=== PATIENT | male | born 1985 | race Caucasian/White ===

== ENCOUNTER 2018-08-28 20:13 | Inpatient (IN) ==
--- NOTE | 2018-08-28 20:57 | ED ---
HPI General Stated Complaint: Psych eval / transfer [facility] Time Seen by Provider: 08/28/18 20:54 Source: patient Mode of arrival: ambulatory Limitations: no limitations History of Present Illness HPI Narrative: 33-year-old white male presents emergency department as a transfer from [facility] [place] under [place] act. Patient was medically cleared and transferred here to [place] for psychiatric evaluation. Patient states that he has multiple personality disorder, schizophrenia, bipolar and has been traveling from [place]. He states that he has been in the state now for last month or so. He states that he has been having visual auditory hallucinations. He has been scratching himself. He is out of his psychotropic medicines. He denies any suicidal or homicidal ideation. He states that he would like to get back on his medicine so he can go back to traveling. Patient has requested something to eat. He denies any medical complaints otherwise. No fever chills. No chest pain or shortness of breath. No nausea vomiting. No abdominal pain or urine symptoms. He denies any drugs. He does drink alcohol on occasion. Patient reports that he also suffers from chronic back and hip pain. Review of Systems ROS: all other systems reviewed are negative Exam Narrative Exam Narrative: GENERAL: Well-nourished, well-developed patient. SKIN: Warm and dry. Patient has superficial scratches to both dorsal forearms and face. HEAD: Normocephalic and atraumatic. EYES: No scleral icterus. No injection or drainage. ENT: No nasal drainage noted. Mucous membranes pink. Airway patent. NECK: Supple, trachea midline. Moves head freely without obvious discomfort. CARDIOVASCULAR: Regular rate and rhythm without murmurs, gallops, or rubs. RESPIRATORY: Breath sounds equal bilaterally. No accessory muscle use. GASTROINTESTINAL: Abdomen soft, non-tender, nondistended. EXTREMITIES: No cyanosis or edema. BACK: Nontender without obvious deformity. No CVA tenderness. NEURO: Patient is alert and oriented. no sensorimotor deficits. Nonfocal. Normal speech. PSYCH: No delusions. No auditory or visual hallucinations. Medical Decision Making MDM Narrative Medical decision making narrative: Patient has been medically cleared from [facility]. I have reviewed the laboratory testing. I see no need for any additional testing at this time. Patient is considered medically stable to be evaluated by psychiatry. Medical Screen Exam Complete: Yes Emergency Medical Condition: Yes Differential Diagnosis Differential Diagnosis: MDM: High Differential diagnoses: Schizophrenia, schizoaffective disorder, bipolar, anxiety, depression, adjustment reaction, mood disorder NOS, ODD, depressive disorder NOS, psychosis NOS, substance induced mood disorder, DMDD, Asperger syndrome, infection,electrolyte abnormality, malingering. Mental health screening discussed with the patient. Psychiatric screen ordered. Discharge Plan Discharge Disposition Patient Disposition: 30 Still Patient Discharge Condition Condition: Stable Physicians Team ED Provider: Leodan Langston ED Midlevel Provider: Nagi Kerr Status ED Status: With Doctor
[2018-08-29] MEDS ORDERED: Aluminum/Magnesium/Simethacone Susp 30 ML UDC PO PRN (09:27)
[2018-08-29] MEDS ORDERED: Bisacodyl 10 MG Supp RECTAL PRN (09:27)
--- NOTE | 2018-08-29 15:10 | P.HPPSY ---
Provisional Diagnosis Admission Date: August 29, 2018 09:29 Frank[place] I.: Schizophrenia vs schizoaffective disorder Frank[place] II.: Deferred Frank[place] III.: No significant medical history Competence Certification of Person's Competence To Provide Express and Informed Consent I have personally examined Sal Morales, a person being served at [facility] on, August 29, 2018 1455. Express and informed consent means consent voluntarily given in writing, by a competent person, after sufficient explanation and disclosure of the subject matter involved to enable the person to make a knowing and willful decision without any element of force, fraud, deceit, duress, or other form of constraint or coercion. This person is 18 years of age or older, is not now known to be incompetent to consent to treatment with a guardian advocate, and does not have a health care surrogate or proxy currently making medical treatment decisions. I have found this person to be one of the following: [] Competent to provide express and informed consent, as defined above, for voluntary admission to this facility and is competent to provide express and informed consent for treatment. He/she has the consistent capacity to make well reasoned, willful, and knowing decisions concerning his or her medical or mental health treatment. The person fully and consistently understands the purpose of the admission for examination/placement and is fully capable of personally exercising all rights assured under [place] Incompetent to provide express and informed consent to voluntary admission, and this is incompetent to provide express and informed consent to treatment. The person must be transferred to involuntary status and a petition for a guardian advocate filed with the Circuit Court. [x] Refusing to provide express and informed consent to voluntary admission but is competent to provide express and informed consent for treatment. The person must be discharged or transferred to involuntary status. Form shall be completed within 24 hours of a person's arrival at the receiving facility and filed in the clinical record of each person: 1. Admitted on a voluntary basis 2. Permitted to provide express and informed consent to his/her own treatment 3. Allowed to transfer from involuntary to voluntary status 4. Prior to permitting a person to consent to his or her own treatment after having been previously found incompetent to consent to treatment. History of Present Illness Capacity: Has capacity History of Present Illness: The patient is 33-year-old man, domiciled in [place], he is traveling throughout [place], single, unemployed, supported by [facility], with a psychiatric history of schizoaffective disorder versus schizophrenia, multiple psychiatric admissions, multiple suicidal attempts, the patient is risperidone consta 50 mg twice a month, no confirmed, he has outpatient psychiatric care in [place], no significant medical history, who presents emergency department as a transfer from [facility] under [place] act. Patient was medically cleared and transferred here to [place] for psychiatric evaluation. He states that he has been in the state now for last month or so going from seated to seated. He was staining a couple of days and new [place] when he started to feel paranoid, feeling that people were following, and sent it was not right. He has not have his medication for 1 month now. He says that he needs to have his Risperdal IM , but he is unable to tell me who is the prescriber in [place] to confirm this medication. He states that he has been having visual noncommanding type auditory hallucinations. He also has being feeling that bugs are crawling he is a skin and he has been scratching himself. He denies any suicidal or homicidal ideation. He states that he would like to get back on his medicine so he can go back to traveling. Patient thought processes logical, coherent and relevant. At times he seems to be oddly related and paranoid, but he is calm, cooperative and pleasant. No loosening of associations, no paranoia, no ideas of reference, no agitation, no aggressive behavior are present during this evaluation. He is oriented x3. The patient refused to give me any telephone number for collateral information. PPHx: psychiatric history of schizoaffective disorder versus schizophrenia, multiple psychiatric admissions, multiple suicidal attempts, the patient is risperidone consta 50 mg twice a month, no confirmed, he has outpatient psychiatric care in [place], PMHx: no significant medical history Family Hx: No family psychiatric history Substance Hx: Patient denies the use of illegal drugs and alcohol Social Hx : The patient was born and raised in [place], he lives in [place], he has been traveling in [place] for the last month, going from seated to city in his car, his car is parked in [facility] now [place] now, single, unemployed, supported by [facility] - Inpatient Certification I certify that the inpatient services were ordered in accordance with Medicare regulations governing the order. This includes certification that hospital inpatient services are reasonable and necessary and in the case of services not specified as inpatient-only under 42 CFR 419.22(n), that they are appropriately provided as inpatient services in accordance to with the 2-midnight benchmark under 43 CFR 412.3(e) I certify that inpatient psychiatric hospital services are medically necessary. Evaluation and treatment and/or diagnostic testing are expected to improve the patient's condition. The patient needs on a daily basis, active treatment furnished directly by or requiring the supervision of inpatient psychiatric facility personnel. Estimated Total Length of Stay (Days): 7 Plans for Post Hospital Care: Home Review of Systems All other systems reviewed negative except as stated in HPI PMFSH - History History Provided By: Patient - Tobacco History Second Hand Smoke Exposure: Yes Tobacco Use In Past 30 Days: Yes Smoking Status: Current some day smoker Tobacco Type: Cigarettes - Alcohol History How Often Do You Have a Drink Containing Alcohol: Monthly or less - Substance Use History Substance History: No History of Abuse - Travel History Recent Travel in the USA Within the Last 8 Weeks: No Recent Travel Out of the Country Within the Last 8 Weeks: No - Immunization History Tetanus Immunization: Unsure Hx Influenza Vaccine This Season: No Medications and Allergies Active Medications: Active Medications Al Hydrox/Mg Hydrox/Simethicone (Mag-Al Plus Susp Liq) 30 ml PO Q6H PRN PRN Reason: DYSPEPSIA Al Hydroxide/Mg Hydroxide (Milk Of Magnesia Liq) 30 ml PO Q12H PRN PRN Reason: Mild Constipation Bisacodyl (Dulcolax Supp) 10 mg RECTAL DAILY PRN PRN Reason: SEVERE CONSITIPATION Lactulose (Lactulose Liq) 30 ml PO DAILY PRN PRN Reason: SEVERE CONSITIPATION Risperidone (Risperdal) 1 mg PO BID [facility] Senna/Docusate Sodium (Shea-Colace) 1 tab PO BID [facility] Sennosides (Senokot) 17.2 mg PO Q12H PRN PRN Reason: Moderate Constipation Allergies Allergy/AdvReac Type Severity Reaction Status Date / Time No Known Allergies Allergy Unverified 08/28/18 21:46 Home Medications Medication Instructions Recorded Confirmed Type No Known Home Medications 08/29/18 08/29/18 History Exam Vital signs: Vital Signs 08/28/18 20:56 08/29/18 07:12 Temperature 98.1 F Pulse Rate 88 61 Respiratory Rate 18 18 Blood Pressure 114/59 L 108/51 L Pulse Oximetry 100 Intake & Output 08/28/18 08/29/18 08/29/18 18:59 06:59 18:59 Intake Total 591 / 591 Output Total 400 / 400 Balance 191 / 191 Weight 68.353 kg Intake: Oral 591 / 591 Output: Urine 400 / 400 Narrative: No tremors, no EPS, no psychomotor agitation retardation, no stiffness, no gait disturbance Mental Status Examination Appearance: Dirty, Disheveled Consciousness: Alert Orientation: x4 Motor Activity: Normal gait Speech: Unremarkable Language: Adequate Fund of Knowledge: Adequate Memory: Unremarkable Mood: Appropriate Affect: Flat Thought Process & Associations: Intact Thought Content: Delusional Delusion Type: Paranoid, Somatic Suicidal Ideation: No Suicidal Plan: No Suicidal Intention: No Homicidal Ideation: No Homicidal Plan: No Homicidal Intention: No Insight: Fair Judgment: Impulsive Assessment and Plan - Assessment (1) Schizophrenia Code(s): F20.9 - Schizophrenia, unspecified Status: Acute - Plan Plan: Estimated LOS: [] days On psychiatric evaluation today the patient presents calm, cooperative, but flat affect, oddly related. The patient reports that in the last days he has been feeling paranoid, has been having visual and auditory hallucinations, and has been having the sensation of bugs crawling his skin and has been scratching his self in both arms with multiple bruises as a consequence. He denies mood symptoms, denies suicidal and homicidal ideation, but this is a patient with a psychiatric history of schizophrenia, multiple psychiatric admissions, suicidal attempts, and who is supposed to be in bimonthly depot antipsychotics, but he has been traveling around [place] in the last month has not taking his medication. The patient seems to have a good insight of his psychosis, but at the same time he seems to be internally preoccupied and has visible paranoia. Since I do not have any collateral information about this patient, I will keep the Mclaughlin act, will admit the patient for stabilization and safety, will restart Risperdal 1 mg twice daily p.o. before bridging to Risperdal Consta. Patient will be transferred to [address] [place] [address]. workers compensation claims analyst intervention for collateral information, psychosocial assessment, individual and group therapies , to work in a safe discharge. Justification for Continued Inpatient Stay: Psychiatric admission is indicated.
[2018-08-29] MEDS: Senna/Docusate Sodium 8.6/50 MG Tablet PO SCH (20:06)
[2018-08-30] MEDS: Senna/Docusate Sodium 8.6/50 MG Tablet PO SCH ×2 (08:22→20:42)
--- NOTE | 2018-08-30 09:13 | P.TTN ---
- Patient Problems Problems: 1. Discharge planning 2. Medication compliance 3. Knowledge deficit 4. Lack of coping skills - Progress Toward Goals Provider Present: Dr. Kaycee Posadas (Patient is new to Dr. Posadas, according to Dr. Posadas patient has been off his medications and recently decompensated.) Psychiatric Counselors Present: Hitesh Redmond Jr., [facility] (Counselor met with patient to complete the initial bio yesterday, patient reports he is homeless, and was previously on constant injection, patient is refusing assistance with safe discharge plan at this time. Counselor will revisit.) Group Spec/RT/OT/GERARDO Present: MIRA Leggett (Patient is new and not attended groups yet.) - Documentation Teaching Recipient: Patient
[2018-08-30 09:48] LABS: Anion Gap 7 meq/L (5-15); Blood Urea Nitrogen 11 mg/dL (7-18); Calcium 8.9 mg/dL (8.5-10.1); Carbon Dioxide 28.7 meq/L (21.0-32.0); Chloride 107 meq/L (98-107); Glomerular Filtration Rate Greater Than 89 mL/min (>89); Glucose,Random 83 mg/dL (74-106); Sodium 143 meq/L (136-145)
[2018-08-30 09:55] LABS: Chol/HDL Ratio 4.19 Ratio; Cholesterol 152 mg/dL (120-200); HDL Cholesterol 36.2 mg/dL (40.0-60.0); LDL Cholesterol,Calculated 98 mg/dL (0-99); Triglycerides 89 mg/dL (42-150)
--- NOTE | 2018-08-30 12:44 | P.CONPSY ---
Provisional Diagnosis Admission Date: August 29, 2018 09:29 Alexander I.: Schizophrenia vs schizoaffective disorder Alexander II.: Deferred Alexander III.: No significant medical history History of Present Illness Service: Psychiatry Consult date: 08/30/18 Requesting Physician: Vick Rodney Reason for Consult: Second opinion Primary Care Provider: UNKNOWN History of Present Illness: The patient is 33-year-old man, domiciled in [place], he is traveling throughout [place], single, unemployed, supported by [facility], with a psychiatric history of schizoaffective disorder versus schizophrenia, multiple psychiatric admissions, multiple suicidal attempts, no significant medical history, no substance use history as per patient, who presents emergency department as a transfer from [facility] under Mclaughlin act after endorsing hallucinations and paranoia which patient was admitted to the inpatient psychiatry unit for further evaluation and management. Discussion with nursing staff reported the patient is mostly isolative in bed has been out for meals. Patient was found lying hospital bed noted be calm and superficially cooperative although noted to be slightly irritable. Patient reports sleeping well, good appetite, continues to endorse auditory hallucinations which she states are better last time being last night. Patient noted to be somewhat internally preoccupied with slight thought blocking during interview. Patient denies any visual hallucinations or paranoid delusions. Discussion of having patient titrated on medication for stabilization was reviewed which she agreed. Patient was requesting discharge but was explained that patient will require stabilization prior to discharge. Patient unable to relate when the last time he would received a long-acting injectable nor of the provider who had given his last treatment. No collateral contacts were provided. Review of Systems All other systems reviewed negative except as stated in HPI [facility] - History History Provided By: Patient, Medical Record - Medical History Medical History: Medical History (Last Updated 08/29/18 @ 17:06 by Cathi Tristan RN) Patient denies medical problems Surgical history unknown - Tobacco History Second Hand Smoke Exposure: Yes Tobacco Use In Past 30 Days: Yes Smoking Status: Current some day smoker Tobacco Type: Cigarettes - Alcohol History How Often Do You Have a Drink Containing Alcohol: Monthly or less - Substance Use History Substance History: No History of Abuse - Travel History Recent Travel in the USA Within the Last 8 Weeks: No Recent Travel Out of the Country Within the Last 8 Weeks: No - Immunization History Tetanus Immunization: Unsure Hx Influenza Vaccine This Season: No Medications and Allergies Active Medications: Active Medications Al Hydrox/Mg Hydrox/Simethicone (Mag-Al Plus Susp Liq) 30 ml PO Q6H PRN PRN Reason: DYSPEPSIA Al Hydroxide/Mg Hydroxide (Milk Of Magnesia Liq) 30 ml PO Q12H PRN PRN Reason: Mild Constipation Bisacodyl (Dulcolax Supp) 10 mg RECTAL DAILY PRN PRN Reason: SEVERE CONSITIPATION Lactulose (Lactulose Liq) 30 ml PO DAILY PRN PRN Reason: SEVERE CONSITIPATION Risperidone (Risperdal) 2 mg PO BID [facility] Senna/Docusate Sodium (Shea-Colace) 1 tab PO BID [facility] Last Admin: 08/30/18 08:22 Dose: Not Given Sennosides (Senokot) 17.2 mg PO Q12H PRN PRN Reason: Moderate Constipation Allergies Allergy/AdvReac Type Severity Reaction Status Date / Time No Known Allergies Allergy Unverified 08/28/18 21:46 Home Medications Medication Instructions Recorded Confirmed Type No Known Home Medications 08/29/18 08/29/18 History Exam Vital signs: Intake & Output 08/29/18 08/30/18 08/30/18 18:59 06:59 18:59 Intake Total 591 / 591 Output Total 400 / 400 Balance 191 / 191 Intake: Oral 591 / 591 Output: Urine 400 / 400 - Constitutional no acute distress, cooperative (Superficially) Mental Status Examination Appearance: Dirty, Disheveled Consciousness: Alert Orientation: x4 Motor Activity: Normal gait Speech: Unremarkable Language: Adequate Fund of Knowledge: Adequate Attention and Concentration: Inadequate Memory: Unremarkable Mood: Appropriate Affect: Flat Thought Process & Associations: Intact Thought Content: Hallucinations, Thought blocking (Slight), Delusional Hallucination Type: Auditory Delusion Type: Paranoid, Somatic Suicidal Ideation: No Suicidal Plan: No Suicidal Intention: No Homicidal Ideation: No Homicidal Plan: No Homicidal Intention: No Insight: Fair Judgment: Impulsive Assessment and Plan - Assessment (1) Schizophrenia Code(s): F20.9 - Schizophrenia, unspecified Status: Acute - Plan Plan: I have seen and examined this patient, reviewed the documentation, discussed personally with Dr. Rodney, and I agree and concur with his assessment and plan. Consult appreciated. Will increase risperidone to 2mg PO BID for psychosis. Continue to monitor mood and behavior. Discharge planning in progress. Justification for Continued Inpatient Stay: At risk for further decompensation at lower level of care.
[2018-08-30 16:20] LABS: Hemoglobin A1c 5.1 % (4.3-6.0)
[2018-08-31] MEDS: Senna/Docusate Sodium 8.6/50 MG Tablet PO SCH ×2 (08:27→20:59)
--- NOTE | 2018-08-31 16:29 | P.PNPSY ---
Subjective Remarks: Patient seen for follow up; chart reviewed. Discussion with nursing staff reported that patient has been less seclusive, has been off her meals, compliant with treatment. Patient was found lying hospital bed noted B, cooperative. Patient states he has been sleeping well, reporting tolerating medications well. Patient noted with less thought blocking less internal preoccupation with better eye contact and more engaging interview today. Patient states that he plans on returning back to home in hospital where he used the vehicle was left in the parking lot. Patient states that he plans on returning back to [place]. Patient denies wanting treatment team to reach out to any family or friends back in [place]. He reports tolerating medications well and agrees to long-acting injectable prior to his discharge. Review of Systems All other systems reviewed negative except as stated in HPI Mental Status Examination Appearance: Dirty, Disheveled Consciousness: Alert Orientation: x4 Motor Activity: Normal gait Speech: Unremarkable Language: Adequate Fund of Knowledge: Adequate Attention and Concentration: Inadequate Memory: Unremarkable Mood: Appropriate Affect: Flat Thought Process & Associations: Intact Thought Content: Hallucinations (Lessening), Thought blocking (Slight), Delusional Hallucination Type: Auditory Delusion Type: Paranoid, Somatic Suicidal Ideation: No Suicidal Plan: No Suicidal Intention: No Homicidal Ideation: No Homicidal Plan: No Homicidal Intention: No Insight: Fair Judgment: Impulsive Assessment and Plan - Assessment (1) Schizophrenia Code(s): F20.9 - Schizophrenia, unspecified Status: Acute - Plan Plan: Patient appearing to be more engaging interview, more affect and able to engage appropriately with questioning. Patient continues report auditory hallucinations but states they are lessening. We will continue to titrate risperidone to 10 mg a.m./3 mg at bedtime for psychosis. Patient agreeable to long-acting injectable. We will plan for continued titration of risperidone with long-acting injectable prior to his discharge. We will continue to monitor mood and behavior. Discharge planning in progress. Justification for Continued Inpatient Stay: At risk of further decompensation a lower level of care.
[2018-09-01] MEDS: Senna/Docusate Sodium 8.6/50 MG Tablet PO SCH ×2 (09:01→21:00)
--- NOTE | 2018-09-01 11:58 | P.PNPSY ---
Subjective Remarks: Patient seen for follow up; chart reviewed. Discussion with nursing staff reported that patient mostly seclusive to his room but off her meals. Patient was found lying hospital bed noted B, cooperative. Patient states that he would agreed to long-acting injectable and he states was on this in the past. Patient reports sleeping well, no difficulty with eating and drinking or bowel movement. Patient agrees to shower today. Patient states that his mood is "neutral" continues to endorse auditory hallucinations which the voices are muffled but denying any paranoid ideation at this time. Patient states that he is planning to return back to [place] but will be arranged for outpatient follow- up here in [facility] if he decides to remain here for further time. Patient agrees with plan. Discussion of starting patient on Risperdal Consta prior to his discharge was reviewed which she agreed and will be given to him on 09/03/18 (respite TO 50 mg IM x1) and will be continued every 2 weeks for maintenance. Review of Systems All other systems reviewed negative except as stated in HPI Mental Status Examination Appearance: Disheveled Consciousness: Alert Orientation: x4 Motor Activity: Normal gait Speech: Unremarkable Language: Adequate Fund of Knowledge: Adequate Attention and Concentration: Inadequate Memory: Unremarkable Mood: Appropriate Affect: Blunt Thought Process & Associations: Intact Thought Content: Hallucinations (Lessening) Hallucination Type: Auditory (Lessening) Delusion Type: Paranoid (Lessening) Suicidal Ideation: No Suicidal Plan: No Suicidal Intention: No Homicidal Ideation: No Homicidal Plan: No Homicidal Intention: No Insight: Fair Judgment: Impulsive Assessment and Plan - Assessment (1) Schizophrenia Code(s): F20.9 - Schizophrenia, unspecified Status: Acute - Plan Plan: Patient this time continues with vague auditory hallucinations but improving, noted to have better affect, lessening of thought blocking and more engaging interview today. Patient to continue Risperdal and titrated to 3 mg p.o. twice daily along with planned Risperdal Consta 50mg IM x1 on 09/03/18. We will continue to monitor mood and behavior. Discharge planning in progress. Justification for Continued Inpatient Stay: At risk of further decompensation a lower level care.
[2018-09-02] MEDS: Senna/Docusate Sodium 8.6/50 MG Tablet PO SCH ×2 (09:09→21:32)
--- NOTE | 2018-09-02 17:18 | P.PNPSY ---
Subjective Remarks: Reviewed electronic medical records and discussed case with staff. Follow-up was conducted in [facility]. Patient reports that he sleeping and eating well. Denies any side effects from the medication. He reports his mood is being "neutral". Mental Status Examination Appearance: Disheveled Consciousness: Alert Orientation: x4 Motor Activity: Normal gait Speech: Unremarkable Language: Adequate Fund of Knowledge: Adequate Attention and Concentration: Inadequate Memory: Unremarkable Mood: Appropriate Affect: Blunt Thought Process & Associations: Intact Thought Content: Hallucinations (Lessening) Hallucination Type: Auditory (Lessening) Delusion Type: Paranoid (Lessening) Suicidal Ideation: No Suicidal Plan: No Suicidal Intention: No Homicidal Ideation: No Homicidal Plan: No Homicidal Intention: No Insight: Fair Judgment: Impulsive Assessment and Plan - Assessment (1) Schizophrenia Code(s): F20.9 - Schizophrenia, unspecified Status: Acute - Plan Plan: Patient will be reevaluated Tuesday by the attending psychiatrist. Continue with current treatment plan. Justification for Continued Inpatient Stay: Moving this patient to a less restrictive environment would likely result in decompensation.
[2018-09-03 05:49] VITALS: O2SAT 97
[2018-09-03] MEDS: Senna/Docusate Sodium 8.6/50 MG Tablet PO SCH ×2 (11:00→20:16)
[2018-09-03] MEDS ORDERED: RISPERIDONE 50 MG/2 ML IM SCH (14:00)
[2018-09-03 18:25] VITALS: BP 119/58; PULSE 66; RESP 18; TEMP 97.7
--- NOTE | 2018-09-03 19:09 | P.PNPSY ---
Subjective Remarks: Reviewed electronic medical records and discussed case with staff. Follow-up was conducted in the hallway. The nurse reports that the patient has had no behavioral disturbances and has been compliant with his medication. He reports "I am fine". States he sleeping and eating okay. He reports his mood as "neutral". However his affect is slightly irritable. Mental Status Examination Appearance: Disheveled Consciousness: Alert Orientation: x4 Motor Activity: Normal gait Speech: Unremarkable Language: Adequate Fund of Knowledge: Adequate Attention and Concentration: Inadequate Memory: Unremarkable Mood: Appropriate Affect: Blunt Thought Process & Associations: Intact Thought Content: Hallucinations (Lessening) Hallucination Type: Auditory (Lessening) Delusion Type: Paranoid (Lessening) Suicidal Ideation: No Suicidal Plan: No Suicidal Intention: No Homicidal Ideation: No Homicidal Plan: No Homicidal Intention: No Insight: Fair Judgment: Impulsive Assessment and Plan - Assessment (1) Schizophrenia Code(s): F20.9 - Schizophrenia, unspecified Status: Acute - Plan Plan: Patient will be reevaluated tomorrow by the attending psychiatrist. Continue with current treatment plan. Justification for Continued Inpatient Stay: Moving this patient to a less restrictive environment would likely result in decompensation.
[2018-09-04] MEDS: Senna/Docusate Sodium 8.6/50 MG Tablet PO SCH (12:07)
--- NOTE | 2018-09-04 17:01 | P.DSPSY ---
Psychiatry Discharge Summary Inpatient Psychiatric care?: Yes Advance Directives: No Mental Health Advance Directive: No Health Care Proxy: No - Admission Admission Date: August 29, 2018 09:29 - Admission Diagnosis (1) Schizophrenia Code(s): F20.9 - Schizophrenia, unspecified Brief History: The patient is 33-year-old man, domiciled in [place], he is traveling throughout [place], single, unemployed, supported by [facility], with a psychiatric history of schizoaffective disorder versus schizophrenia, multiple psychiatric admissions, multiple suicidal attempts, the patient is risperidone consta 50 mg twice a month, no confirmed, he has outpatient psychiatric care in [place], no significant medical history, who presents emergency department as a transfer from [facility] under [place] act. Patient was medically cleared and transferred here to [place] for psychiatric evaluation. He states that he has been in the state now for last month or so going from seated to seated. He was staining a couple of days and new [place] when he started to feel paranoid, feeling that people were following, and sent it was not right. He has not have his medication for 1 month now. He says that he needs to have his Risperdal IM , but he is unable to tell me who is the prescriber in [place] to confirm this medication. He states that he has been having visual noncommanding type auditory hallucinations. He also has being feeling that bugs are crawling he is a skin and he has been scratching himself. He denies any suicidal or homicidal ideation. He states that he would like to get back on his medicine so he can go back to traveling. Patient thought processes logical, coherent and relevant. At times he seems to be oddly related and paranoid, but he is calm, cooperative and pleasant. No loosening of associations, no paranoia, no ideas of reference, no agitation, no aggressive behavior are present during this evaluation. He is oriented x3. The patient refused to give me any telephone number for collateral information. PPHx: psychiatric history of schizoaffective disorder versus schizophrenia, multiple psychiatric admissions, multiple suicidal attempts, the patient is risperidone consta 50 mg twice a month, no confirmed, he has outpatient psychiatric care in [place], PMHx: no significant medical history Family Hx: No family psychiatric history Substance Hx: Patient denies the use of illegal drugs and alcohol Social Hx : The patient was born and raised in [place], he lives in [place], he has been traveling in [place] for the last month, going from [facility] [place] in his car, his car is parked in [facility] now [place] now, single, unemployed, supported by [facility] Tobacco Use In Past 30 Days: Yes How Often Do You Have a Drink Containing Alcohol: Monthly or less Hospital Course: Patient is a 33-year-old man, domiciled with [place], reported traveling to [place], single, unemployed on [facility], with a past psychiatric history of schizoaffective disorder versus schizophrenia, multiple psychiatric admissions, multiple suicide attempts, patient currently on Risperdal Consta 50 mg biweekly, not confirmed, has outpatient psychiatric care in [place], no significant past medical history, who presented to the ER as a transfer from [facility] under [place] act. Patient was admitted to a locked, inpatient psychiatric unit. Appropriate precautions were in place throughout patient's hospital stay. Patient was seen and examined on the unit by psychiatry. Psychotropic medications were adjusted. There was no evidence of any suicidality or homicidality on the inpatient unit. Patient's mood improved with the benefit of psychopharmacological treatment and had no behavioral disturbance during admission. Patient was noted to have reached stable mood, noted to participate and engage in treatment and interact with staff adequately. Patient noted to be future oriented with plans to continue treatment and outpatient follow-up appointments for continuity of care here in [facility] if patient decides to remain in the area. Counselor has arranged discharge plan. On the day of discharge: Patient seen and examined; chart reviewed. Case discussed with nurse and counselor. No behavioral issues overnight. On my examination today, the patient denies any suicidal homicidal ideation, intent or plan on direct questioning and contracts for safety. Patient denies any perceptional disturbances and no delusional material verbalized today. Patient denies any side effects from medication and has understanding of medication regimen and education. No physical complaints. Suicide and violence risk assessment on day of discharge both suggest lower imminent risk, and the patient's level of function is adequate for plan level of outpatient care. Patient has maximized benefit from this inpatient psychiatric hospital stay and will be discharged with discharge plan as arranged by counselor. Patient advised to return to psychiatric emergency room for any concerning psychiatric symptoms. Patient agrees with plan. - Discharge Discharge Date: 09/04/18 - Discharge Diagnosis (1) Schizophrenia Code(s): F20.9 - Schizophrenia, unspecified Status: Acute Discharge Disposition: Home - Discharge Instructions Discharge Diet: Regular Diet Activities You Can Perform: Regular- No Restrictions - Discharge Time > 30 minutes Mental Status Examination Appearance: Appropriate Consciousness: Alert Orientation: x4 Motor Activity: Normal gait Speech: Unremarkable Language: Adequate Fund of Knowledge: Adequate Attention and Concentration: Adequate Memory: Unremarkable Mood: Appropriate Affect: Appropriate Thought Process & Associations: Intact Thought Content: Appropriate Hallucination Type: None Delusion Type: None Suicidal Ideation: No Suicidal Plan: No Suicidal Intention: No Homicidal Ideation: No Homicidal Plan: No Homicidal Intention: No Insight: Fair Judgment: Impulsive Discharge/Advance Care Plan - Results Vital Signs: Last Vital Signs Temp 97.7 F 09/03/18 18:24 Pulse 66 09/03/18 18:24 Resp 18 09/03/18 18:24 BP 119/58 L 09/03/18 18:24 Pulse Ox 97 09/03/18 18:24 Lab Results: Laboratory Results Hemoglobin A1c 5.1 % (4.3-6.0) 08/30/18 07:47 Triglycerides 89 mg/dL (42-150) 08/30/18 07:47 Cholesterol 152 mg/dL (120-200) 08/30/18 07:47 LDL Cholesterol, Calc 98 mg/dL (0-99) 08/30/18 07:47 HDL Cholesterol 36.2 mg/dL (40.0-60.0) L 08/30/18 07:47 Summary of Procedures: None Pending Results: None - Medications Number of antipsychotic medications at discharge: 1 - Discharge Care Plan Goals to Promote Your Health: * To prevent worsening of your condition and complications * To maintain your health at the optimal level Directions to Meet Your Goals: Take your medications as prescribed Follow your dietary instruction Follow activity as directed Keep your appointments as scheduled Take your immunizations and boosters as scheduled If your symptoms worsen call your PCP, if no PCP go to Urgent Care Center or Emergency Room For 20/06 questions related to your inpatient stay or results of tests pending at discharge, please contact Dr. El Posadas MD at Smoking is Dangerous to Your Health. Avoid second hand smoking
== END 2018-09-04 13:25 | disposition home or self-care (01) ==
LOC: NEPJ 20:13 → NEDA 08-29 09:29 → H270 08-29 13:00
PROVIDERS: ADMIT Student in an Organized Health Care Education/Training Program; ATTEND Student in an Organized Health Care Education/Training Program